=== PATIENT | male | born 1930 | race Caucasian/White ===

== ENCOUNTER 2021-01-29 13:44 | Inpatient (IN) | payer MEDICARE ==
[~2021-01-29] VITALS: Ht 185.4 cm; Wt 86.5 kg
[~2021-01-29 13:44] MED LIST: CIPR500 PO; LEVSOD88 PO; METR500 PO; Prednisone20 MG PO; TEMA30; Vitamin B-121000 MCG PO; Zithromax250 MG PO
[2021-01-29 14:44] LABS: BASOPHILS ABSOLUTE AUTO 0.04 K/mm3 (0.00-0.23); BASOPHILS PERCENT AUTO 0 % (0-2); EOSINOPHILS ABSOLUTE AUTO 0.02 K/mm3 (0.00-0.68); EOSINOPHILS PERCENT AUTO 0 % (0-6); Hematocrit 45.9 % (37.0-53.0); Hemoglobin 15.7 g/dL (13.5-17.5); IMMATURE GRAN ABSOLUTE AUTO 0.15 K/mm3 (0.00-0.10); IMMATURE GRAN PERCENT AUTO 1 % (0-1); LYMPHOCYTES PERCENT AUTO 7 % (21-46); MONOCYTES ABSOLUTE AUTO 0.84 K/mm3 (0.16-1.47); MONOCYTES PERCENT AUTO 7 % (4-13); Mean Corpuscular HGB 31.8 pg (26.0-34.0); Mean Corpuscular HGB Conc 34.2 g/dL (31.5-36.5); Mean Corpuscular Volume 93 fL (80-100); NEUTROPHILS ABSOLUTE AUTO 9.86 K/mm3 (1.96-9.15); NEUTROPHILS PERCENT AUTO 84 % (41-73); RDW Coefficient Variation 13.3 % (11.7-14.2); RDW Standard Deviation 45.1 fL (35.1-46.3); Red Blood Cell Count 4.94 M/mm3 (4.30-5.90); White Blood Cell Count 11.71 K/mm3 (4.00-11.30)
[2021-01-29 14:53] LABS: Mean Platelet Volume 9.9 fL (9.1-12.4); Platelet Count 242 K/mm3 (150-400)
[2021-01-29 14:54] LABS: Free Thyroxine 1.45 ng/dL (0.70-1.60); Magnesium, Blood 2.3 mg/dL (1.6-2.4); Thyroid Stimulating Hormone 2.53 uIU/mL (0.360-4.800)
[2021-01-29 17:04] LABS: Albumin, Blood 2.5 g/dL (3.4-5.0); Albumin/Globulin Ratio 0.6 (0.8-1.8); Bun/Creatinine Ratio 38.3 (12.0-20.0); Calcium, Blood 8.7 mg/dL (8.5-10.1); Creatinine, Blood 1.54 mg/dL (0.60-1.20); Globulin, Blood 4.4 g/dL (2.2-4.0); Total Protein, Blood 6.9 g/dL (6.4-8.2)
[2021-01-29 17:07] LABS: Source, Urine Catheter
[2021-01-29 17:11] LABS: Appearance, Urine Hazy (Clear); Bilirubin, Urine Neg (Neg); Blood, Urine 5+ (Neg); Color, Urine Yellow (P-Yellow); Glucose Qualitative, Urine Neg (Neg); Ketones, Urine 2+ (Neg); Leukocyte Esterase, Urine 1+ (Neg); Nitrite, Urine Neg (Neg); Protein, Urine 2+ (Neg); Urobilinogen, Urine 1+ (Normal)
[2021-01-29 17:35] LABS: Bacteria Few /hpf
[2021-01-29 17:39] LABS: Mucus Light (0-Heavy)
[2021-01-29 17:46] LABS: Squamous Epithelial Cells Few /hpf (Few)
[2021-01-30 04:55] LABS: BASOPHILS ABSOLUTE AUTO 0.01 K/mm3 (0.00-0.23); BASOPHILS PERCENT AUTO 0 % (0-2); EOSINOPHILS PERCENT AUTO 0 % (0-6); Hemoglobin 14.3 g/dL (13.5-17.5); IMMATURE GRAN ABSOLUTE AUTO 0.06 K/mm3 (0.00-0.10); IMMATURE GRAN PERCENT AUTO 1 % (0-1); LYMPHOCYTES ABSOLUTE AUTO 0.69 K/mm3 (0.84-5.20); LYMPHOCYTES PERCENT AUTO 8 % (21-46); MONOCYTES ABSOLUTE AUTO 0.57 K/mm3 (0.16-1.47); MONOCYTES PERCENT AUTO 7 % (4-13); Mean Corpuscular HGB 31.6 pg (26.0-34.0); Mean Corpuscular Volume 93 fL (80-100); Mean Platelet Volume 9.7 fL (9.1-12.4); NEUTROPHILS PERCENT AUTO 84 % (41-73); Platelet Count 216 K/mm3 (150-400); RDW Coefficient Variation 13.3 % (11.7-14.2); RDW Standard Deviation 45.4 fL (35.1-46.3); Red Blood Cell Count 4.52 M/mm3 (4.30-5.90); White Blood Cell Count 8.43 K/mm3 (4.00-11.30)
--- NOTE | 2021-01-30 05:16 | NUR ---
SHIFT SUMMARY A/O TO SELF, IMPULSIVE AND ATTEMPTING TO GET OUT OF BED. PLEASANT BUT DIFFICULTY WITH FOLLOWING DIRECTIONS. SUSY IN PLACE FOR SAFETY D/T HIGH FALL RISK. RASH NOTED FROM ABD TO THIGHS. SEVERE EXCORIATIONS TO GROIN/BOTTOM WITH WHITE FOUL SMELLING EXUDATE. PT YELLING OUT IN PAIN WITH ATTENDS CHANGE. BED IN LOWEST POSITION, ALARM ON, CALL LIGHT IN REACH. WILL CONTINUE TO MONITOR AND REPORT TO ONCOMING RN.
[2021-01-30 05:30] LABS: Alanine Aminotransfer (ALT/SGP 58 U/L (12-78); Albumin/Globulin Ratio 0.5 (0.8-1.8); Alk Phos 51 U/L (50-136); Anion Gap 9 mmol/L (6-16); Aspartate Aminotrans (AST/SGOT 51 U/L (12-37); Bilirubin, Total 0.4 mg/dL (0.1-1.0); Blood Urea Nitrogen 45 mg/dL (8-24); Bun/Creatinine Ratio 39.8 (12.0-20.0); CO2, Blood 23 mmol/L (21-32); Calcium, Blood 8.1 mg/dL (8.5-10.1); Chloride, Blood 107 mmol/L (98-108); Creatinine, Blood 1.13 mg/dL (0.60-1.20); Glomerular Filtration Rate >60 (60-); Glucose, Blood 126 mg/dL (70-99); Potassium, Blood 4.4 mmol/L (3.5-5.5); Sodium, Blood 139 mmol/L (136-145)
--- NOTE | 2021-01-30 11:58 | NUR ---
Ethics consult order received and processed. 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 His advance care planning instrument allows for a non-aggressive approach to treatment in the event that his testamentary capcity is undermined, and he finds himself in a terminal and chronic state. The attending physician has verfied that the principal has a life-ending and presumably irreversible condition with a low probability of benefiting from aggressive or heroic care. Given these unfortunate set of circumstances, it is ethically and legally appropriate and permissible for the principals code status to be altered to DNR / DNI. This approach honors the previously expressed wishes of the patient, and avoids the imposition of disproportionate, burdensome and non-efficacious treatment on him, which would be damaging to his final moments and an affront to his dignity. Thank you for this consult. Pastor Beckham ThD
--- NOTE | 2021-01-30 16:23 | NUR ---
SHIFT SUMMARY PT IS AO TO SELF. PT DENIES PAIN, N/V, SOB. PT SATS 89% ON 10 L O2 VIA NC. PT FREQUENTLY REMOVES O2. PT CURRENTLY IN RESTRAINTS. ENHANCED ISOLATION PRECUATIONS MAINTAINED T/O SHIFT. PT APPETITE IS POOR. PT IS 2 MAX ASSIST FOR ANY TRANSFERS. PT HAS INTERMITTENT AGITATION T/O SHIFT. PT HAS MOIST, PRODUCTIVE COUGH. PT IS IN BED, CALL LIGHT IN REACH, LOW POSITION.
--- NOTE | 2021-01-31 04:06 | NUR ---
SHIFT SUMMARY A/O TO SELF ONLY, AGITATED AND IMPULSIVE. CURRENTLY ON 10L 02. SUSY AND BILATERAL WRIST RESTRAINTS IN PLACE FOR SAFETY/PROTECT OXYGEN TUBING. PT UP ALL NIGHT YELLING OUT FOR HELP AND REQUESTING STAFF TO TAKE OFF OXYGEN. IM ZYPREXA GIVEN X2 WITH NO DECREASE IN AGITATION NOTED. SEVERE EXCORIATIONS TO GROIN/BOTTOM. NYSTATIN LIGHTLY APPLIED D/T PAIN WHILE CHANGING ATTENDS. BED IN LOWEST POSITION, ALARM ON, CALL LIGHT IN REACH. WILL CONTINUE TO MONITOR AND REPORT TO ONCOMING RN.
--- NOTE | 2021-01-31 12:04 | NUR ---
PT CURRENTLY ON HFNC 14L SATS 91%, BS DIMINISHED THROUGHTOUT. PT TAKES OFF HIS O2 DEVICE. PUT ON HIM TWICE THIS MORNING.
--- NOTE | 2021-02-01 06:22 | NUR ---
PATIENT PLEASANT, ALERT TO SELF ONLY, STILL DOES NOT COMPREHEND NEED TO KEEP 02 ON AND CONSEQUENTLY IS ABLE TO REMOVE IT DESPITE BILATERAL WRIST RESTRAINTS AND DROP HIS SATURATIONS DOWN INTO HIGH 70'S,LOW 80'S. . VOIDING CLEAR YELLOW URINE IN URINAL. LUNG SOUNDS DIM IN BASES WITH CRACKLES AND WHEEZES IN UPPER LOBES AND AIRWAYS.
[2021-02-01 06:40] LABS: Albumin, Blood 2.4 g/dL (3.4-5.0); Anion Gap 6 mmol/L (6-16); Blood Urea Nitrogen 36 mg/dL (8-24); Bun/Creatinine Ratio 32.7 (12.0-20.0); CO2, Blood 28 mmol/L (21-32); Calcium, Blood 8.8 mg/dL (8.5-10.1); Chloride, Blood 106 mmol/L (98-108); Glomerular Filtration Rate >60 (60-); Glucose, Blood 115 mg/dL (70-99); Phosphorus, Blood 2.4 mg/dL (2.5-4.9); Potassium, Blood 3.7 mmol/L (3.5-5.5); Sodium, Blood 140 mmol/L (136-145)
--- NOTE | 2021-02-01 18:46 | NUR ---
PT REMAINS VERY CONFUSED REQUIRING RESTRAINTS TO PREVENT HIM FROM PULLING ON O2 LINES. PT DESATS VERY QUICKLY WITH NO 02 YET CONTINUES TO PULL AT IT WITH OUT RESTRAINTS. PT IS HAS ADVANCED DEMENTIA. HE IS PLEASANT AND COOPERATIVE WITH CARES YET COMPLAINS OF THE 02 LINES.
--- NOTE | 2021-02-02 07:24 | NUR ---
SHIFT SUMMARY ASSUMED CARE OF PT AT 1900. PT IS NOT ORIENTED TO ANYTHING BUT HIMSELF. PT HAS BEEN AGITATED THIS SHIFT, PULLING AT HIS RESTRAINTS AND TAKING OFF HIS OXYGEN. PT HAS NEEDED BOTH THE HIFLOW NASAL CANNULA AND THE NON REBREATHER MASK BOTH AT 15L FIO2. PT WAS GIVEN ZYPREXA WITH NO EFFECT. PT WAS THEN GIVEN ATIVAN, ALSO WITH NO EFFECT. PT C/O ABD PAIN, PT WAS PUT ON THE BSC, BUT COULD NOT STAY STILL, PT WAS THEN STRICT BEDREST DUE TO INCREASED SATURATION NEEDS. PT WAS GIVEN MORPHINE FOR THE PAIN, WITH NO EFFECT, AND A SUPPOSITORY TO HELP HAVE A BM. PT HAS BRUSING ALL ALONG HIS GROIN AND R LEG, MEDICATED WITH NYSTATIN POWDER. PT BLADDER SCAN SHOWED 133, AND HE WAS INCONTIENT T/O THE NIGHT. CALL LIGHT IN REACH, BED IN LOWEST POSITON, BED ALARM ON, CAMERA MONITRING.
--- NOTE | 2021-02-02 17:45 | NUR ---
PT CHANGED TO COMFORT CARE. DAUGHTER NOTIFIED . PT IS NO LONGER IN RESTRAINTS. HE IS RESTING WITH PERIODS OF LEAVING HIS 02 ON AND REMOVING IT. HE IS GIVEN ATIVAN AND MORPHINE NEEDED. NO DISTRESS NOTED. CALL LIGHT WITHIN REACH.
--- NOTE | 2021-02-03 06:01 | NUR ---
SHIFT SUMMARRY PATIENT ASLEEP ALL NIGHT. REPOSITIONED AND CLEANSED FOR COMFORT
--- NOTE | 2021-02-03 11:00 | NUR ---
Comfor care visit: Sukhi is on comfort care and appears to be sleeping at this time. No distress noted. Resp rate uneven, but doesn't appear labored at this time. Purple discolorations noted to right leg from hip down and also to right hand. PC to continue to follow prn for pt/family support and symptom management.
--- NOTE | 2021-02-03 11:50 | NUR ---
Patient stated he was in pain but he was unspecific about location. The patient was also anxious and wanted out of bed. He kept mumbling. He did not have any SOB and he was able to follow directions and return to lying in bed. Patient was mdicated for pain and axiety per EMAR.
--- NOTE | 2021-02-03 11:54 | NUR ---
Patient was resting in his chair, He started to slide down and was moved to the bed. The patient is now resting in his bed.
--- NOTE | 2021-02-03 11:56 | NUR ---
Patient did complain of pain in his right abd and he was given miralax per EMAR. Patient is currently sleeping
--- NOTE | 2021-02-03 18:24 | NUR ---
Shift Summary, The patient has been A/OX0 to person, place, time and event. The patient is on comfert care. Comfert care measures have been completed this shift The patient has been sleeping most of the day. He C/O RLQ abd pain and he was given suppository. He has not had a BM since 82902/02/2021. The patient is currently sleeping.
--- NOTE | 2021-02-03 18:59 | NUR ---
Patient has been sleeping and was sleeping in his chair but was moved back to his bed becuase he was slidding down.
--- NOTE | 2021-02-03 19:00 | NUR ---
PATIENT is sleeping in bed
--- NOTE | 2021-02-03 19:01 | NUR ---
Patient was given a suppository per EMAR and he was repositioned in the room. Th patient requested to use the urinal but did not produce urine. The patient went back to sleep.
--- NOTE | 2021-02-03 23:57 | NUR ---
PATIENT WAS CLAED AN REPOSITIONED, DIAPER AND BEDDINGS CHANGED, PATIENT VOIDED A SMALL AMOUNT OF DARK YELLOW URINE IN URINAL.
--- NOTE | 2021-02-04 01:31 | NUR ---
PATIENT AWAKE, VOIDED SMALL AMOUNT OF DARK YELLOW URINE IN URINAL. C/O THIRST, DRANK SMALL SIPS OF WATER. 1MG IV ATIVAN PUHED FOR AMXIETY WITH GOOD EFFECTS.
--- NOTE | 2021-02-04 03:57 | NUR ---
SHIFT NOTE: PATIENT SLEEPING COMFORTABLY
--- NOTE | 2021-02-04 06:13 | NUR ---
SHIFT SUMMARRY PATIENT RESTLESS DURING THE NIGHT FREQUENTLY STATING 'HELP' . fREQUENT REPOSITIONIG, PRN ATIVAN IMG IV GIVEN WITH GOOD EFFECTS. 20MG MORHINE ALSO GIVEM SL FOR DISCOMFRT AND SOB
--- NOTE | 2021-02-04 19:03 | NUR ---
The patient was sleeping. He had a wet breif and was changed and return back to sleep. The patient does have RLQ abd pain r/t constipation and a suppository was given.
--- NOTE | 2021-02-04 19:06 | NUR ---
The patient was repositioned and he had pain in his RLQ. He return back to sleep.
--- NOTE | 2021-02-04 19:07 | NUR ---
Patient requested to use the his urinal but he was unable to produce urine.
--- NOTE | 2021-02-04 19:08 | NUR ---
Patient was sleeping.
--- NOTE | 2021-02-04 19:10 | NUR ---
The patient requested to you the bathroom again but didn't produce any urine. While moving he requested pain medication and stated the pain is all over. Also, he had some anxiety he was medicated for pain and axiety pre EMAR. The patient requested water and he was given mouth swabs and tollerated and then he was given water with a staw. The patient was not eating meals and a meal replacement drink was given and he tollerated. He was able to drink but took breaks to ketch his breathe. The patient has wet unproductive cough, The provider was notified and atropine drops were ordered to help with the secretions.
--- NOTE | 2021-02-04 19:22 | NUR ---
The patient is resting in his bed. He was offered water but didn't want any.
--- NOTE | 2021-02-05 03:05 | NUR ---
SHIFT SUMMARY A/O TO SELF ONLY. COMFORT CARE MEASURES IN PLACE. SL ROXANOL GIVEN FOR PAIN. Q2 REPOSITIONING AND ORAL CARE WITH SUCTIONING PRN. BED IN LOWEST POSITION WITH CALL LIGHT IN REACH. WILL CONTINUE TO MONITOR AND REPORT TO ONCOMING RN.
--- NOTE | 2021-02-05 16:42 | NUR ---
ALEXUS GAMBOA, DAUGHTER [phone].
[2021-02-05 17:47] LABS: SARS-Cov-2 (COVID-19) PCR, MMC POSITIVE (NEGATIVE)
--- NOTE | 2021-02-05 19:25 | NUR ---
called by Rn for worsening symptoms and change in status. Team meeting with Carmina and nursing to review symptoms and medications. REview of some of the repritory symptoms we are seeing with COVID. pt distened and sqirming and showing signs of GI distress. pt yelling aout gurgling and guarding abdomen. adjusted medications for non verbal signs of distress, dyspnea, GI upset and pain. Pt showing sign of improved symptom managment after change in positioning and medications. may need to increase roxinol. pt showing rapid progression. family updated.
--- NOTE | 2021-02-05 19:54 | NUR ---
PT AT 193, WILL NOTIFY MD AND DAUGHTER THAT IS LISTED IN CONTACTS
== END 2021-02-05 22:48 | DRG 177 ==
LOC: ER 13:44 → MEDS 20:36 → ERHOLD 20:36 → MEDS 22:00
PROVIDERS: Emergency Medicine; Internal Medicine; ADMIT Hospitalist
PROC: XW033E5 Introduction of Remdesivir Anti-infective into Peripheral Vein, Percutaneous Approach, New Technology Group 5 (ICD-10-PCS; principal; 2021-01-29)
PROC: 3E0333Z Introduction of Anti-inflammatory into Peripheral Vein, Percutaneous Approach (ICD-10-PCS; 2021-01-29)
PROC: 8E0ZXY6 Isolation (ICD-10-PCS; 2021-01-29)
DX: U07.1 COVID-19 (principal); J12.82 Pneumonia due to coronavirus disease 2019; G93.41 Metabolic encephalopathy; J96.01 Acute respiratory failure with hypoxia; N17.9 Acute kidney failure, unspecified; N39.0 Urinary tract infection, site not specified; F05 Delirium due to known physiological condition; L03.314 Cellulitis of groin; Z51.5 Encounter for palliative care; Z66 Do not resuscitate; E86.0 Dehydration; F03.90 Unspecified dementia, unspecified severity, without behavioral disturbance, psychotic disturbance, mood disturbance, and anxiety; R45.1 Restlessness and agitation; R62.7 Adult failure to thrive; J45.909 Unspecified asthma, uncomplicated; Z87.891 Personal history of nicotine dependence; Z68.27 Body mass index [BMI] 27.0-27.9, adult; Z78.1 Physical restraint status
CPT/HCPCS: 36415; 51701; 71045; 74018; 80053; 80069; 81001; 82607; 82746; 82947; 83735; 83880; 84145; 84439; 84443; 85025; 86141; 86592; 93005; 93010; 94640; 94760; 94762; 96361-59; 96365-59; 96367-59; 96375-59; 96376-59; 99285-25; A9270; J0696; J1100; J1650; J2060; J2270; J7030; J7120; U0004